=== PATIENT | female | born 1970 | race Caucasian/White ===

== ENCOUNTER 2022-06-02 03:06 | Emergency (ER) | payer OTHER ==
[~2022-06-02] VITALS: Ht 157.5 cm; Wt 63.5 kg
--- NOTE | 2022-06-02 03:12 | NUR ---
PT JUAN M BLS. TAKEN TO BED 2
[2022-06-02 03:17] VITALS: BP 139/79
[2022-06-02] MEDS ORDERED: MORPHINE SULFATE 4 MG/ML SYR IVP ONE (03:25)
[2022-06-02] MEDS ORDERED: ONDANSETRON 4 MG/2 ML VIAL IVP ONE (03:25)
[2022-06-02] MEDS ORDERED: NACL 0.9% 1,000 ML IV ONE (03:25)
[2022-06-02 03:42] LABS: BASOPHILS # (AUTO) 0.1 K/uL (0.00-0.22); BASOPHILS % (AUTO) 0.8 % (0.0-2.0); EOSINOPHILS # (AUTO) 0.1 K/uL (0-0.4); EOSINOPHILS % (AUTO) 1.3 % (0.0-4.0); HEMATOCRIT 38.3 % (36-48); HEMOGLOBIN 13.2 g/dL (12.0-16.0); LYMPHOCYTES # (AUTO) 1.5 K/uL (2.5-16.5); LYMPHOCYTES % (AUTO) 22.3 % (20.5-51.1); MEAN CORPUSCULAR HEMOGLOBIN 29 pg (27-31); MEAN CORPUSCULAR HGB CONC 34 g/dL (33-37); MEAN CORPUSCULAR VOLUME 83.2 fL (80-94); MONOCYTES # (AUTO) 0.3 K/uL (0.8-1.0); MONOCYTES % (AUTO) 3.8 % (1.7-9.3); NEUTROPHILS % (AUTO) 71.8 % (42.2-75.2); PLATELET COUNT (AUTO) 225 K/uL (140-450); RED BLOOD CELL COUNT(AUTO) 4.61 MIL/uL (4.20-5.40); RED CELL DISTRIBUTION WIDTH 13.5 % (11.6-13.7); WHITE BLOOD COUNT (AUTO) 6.9 K/uL (4.8-10.8)
[2022-06-02 04:02] LABS: ALBUMIN 3.2 g/dL (3.4-5.0); ANION GAP 16.1 (8-16); CREATININE 1.1 mg/dL (0.6-1.3); POTASSIUM 3.1 mmol/L (3.5-5.1); TOTAL BILIRUBIN 0.4 mg/dL (0.0-1.0)
[2022-06-02 04:06] LABS: APPEARANCE,URINE CLEAR (CLEAR); BILIRUBIN,URINE NEGATIVE (NEGATIVE); BLOOD, URINE 1+ (NEGATIVE); COLOR,URINE YELLOW (YELLOW); LEUKOCYTE ESTERASE ,URINE NEGATIVE (NEGATIVE); NITRITE, URINE NEGATIVE (NEGATIVE); UGLUCOSE NEGATIVE (NEGATIVE)
--- NOTE | 2022-06-02 04:10 | NUR ---
BIBA FOR LOWER ABD PAIN THAT AWOKE HER FROM SLEEP, C/O N/V, PT STATES SHE WAS AT [facility]RGENT [facility]ARE YESTERDAY FOR MUSCLE SPASM AND GIVEN MEDICATION BUT DIDNT TAKE IT. PT PLACED ON PATTERNMAKER ALL AROUND.
[2022-06-02 04:32] LABS: WBC,URINE 0-5 /HPF (0-5)
--- NOTE | 2022-06-02 04:38 | NUR ---
PT TAKEN TO CT
[2022-06-02] MEDS ORDERED: KETOROLAC 30 MG/ML VIAL IVP ONE (05:50)
[2022-06-02] MEDS ORDERED: POTASSIUM CHLORIDE 10 MEQ TABER PO ONE (05:50)
[2022-06-02] MEDS ORDERED: NAPR-54 PO (06:04)
[2022-06-02] MEDS ORDERED: ACET-8386 PO (06:04)
[2022-06-02] MEDS ORDERED: ONDA-188 PO (06:04)
[2022-06-02] MEDS ORDERED: HYDROcodone/APAP 5/325 MG 1 TAB TAB PO ONE (06:15)
[2022-06-02 06:39] VITALS: BP 115/70
--- NOTE | 2022-06-02 06:39 | NUR ---
Patient discharged with v/s stable. Written and verbal after care instructions given and explained. Patient alert, oriented and verbalized understanding of instructions. Ambulatory with steady gait. All questions addressed prior to discharge. ID band removed. Patient advised to follow up with PMD. Rx of SENT TO LAB. Patient educated on indication of medication including possible reaction and side effects. Opportunity to ask questions provided and answered.
== END 2022-06-02 06:39 | disposition home or self-care (01) ==
LOC: MED 03:06
DX: N20.1 Calculus of ureter (principal); Z90.49 Acquired absence of other specified parts of digestive tract; Z79.899 Other long term (current) drug therapy; Z98.84 Bariatric surgery status
CPT/HCPCS: 36415; 74176; 80053; 81001; 81025; 83690; 85025; 96361; 96374; 96375; 99284; J1885; J2270; J2405